=== PATIENT | male | born 1955 | race Caucasian/White ===

== ENCOUNTER → 2020-01-22 | Outpatient (CLI) | payer OTHER, SELFPAY ==
--- NOTE | 2020-01-22 14:43 | EKG12_ITS ---
Test Reason : PRE OP Blood Pressure : / mmHG Vent. Rate : 054 BPM Atrial Rate : 054 BPM P-R Int : 166 ms QRS Dur : 094 ms QT Int : 400 ms P-R-T Axes : 047 045 031 degrees QTc Int : 379 ms Sinus bradycardia Incomplete right bundle branch block Borderline ECG Confirmed by RONNA CHEATHAM, JONNY ([id number]), editor publications ROXANA AMAYA ([id number]) on 01/25/2020 1:43:12 PM Referred By: Pop Francis Confirmed By:ALFA FRIEND MD
[2020-01-22 15:34] LABS: Absolute Lymphocyte Count 1.64 X10^3/uL (0.83-4.51); Absolute Neutrophil Count 3.9 X10^3/uL (2.0-7.7); Basophil# 0.08 X10^3/uL; Basophil% 1.2 % (0-1); Eosinophil# 0.18 X10^3/uL; Eosinophils% 2.8 % (0-5); Hematocrit 47.2 % (40-54); Hemoglobin 16.4 g/dL (13.0-16.5); Lymphocyte # 1.64 X10^3/ul (4.0); Lymphocyte % 25.3 % (19-41); Mean Corp Hgb Conc 34.7 g/dL (32-36); Mean Corpuscular Hgb 32.9 pg (27.0-32.0); Mean Corpuscular Volume 94.6 fL (80-94); Mean Platelet Vol. 10.4 fl (6.2-12.0); Monocyte# 0.61 X10^3/uL; Monocyte% 9.4 % (0-10); NRBC Flagged by Analyzer 0 % (0-5); Neutrophil % 60.4 % (47-70); Platelet Count 178 K/mm3 (150-450); RBC Distribution Width CV 12.7 % (11.6-14.6); RBC Distribution Width SD 43.7 fl (35.1-43.9); Red Blood Count 4.99 M/mm3 (4.6-6.2); White Blood Count 6.5 K/mm3 (4.4-11.0)
[2020-01-22 16:07] LABS: Anion Gap 6 (5-15); BUN 17 mg/dL (7-18); BUN/Creat Ratio 20.1 RATIO (10-20); Chloride 102 mmol/L (98-107); Creatinine, Serum 0.85 mg/dL (0.70-1.30); EST Glomerular Filtration Rate 97 mL/min (>60); Est Glom Filt Rate - Afr Amer 117 mL/min (>60); Glucose 92 mg/dL (74-106); Sodium Level 137 mmol/L (136-145)
== END | disposition home or self-care (01) ==
LOC: LAB 14:27
PROVIDERS: PCP Family Medicine; Referring Provider Physician Assistant Surgical; Visit Provider Physician Assistant Surgical
DX: Z01.810 Encounter for preprocedural cardiovascular examination (principal)
CPT/HCPCS: 36415; 80048; 85025; 93005

== ENCOUNTER → 2020-03-11 | Outpatient (CLI) | payer OTHER, SELFPAY ==
[2020-03-11 11:24] LABS: Absolute Lymphocyte Count 1.45 X10^3/uL (0.83-4.51); Absolute Neutrophil Count 3.1 X10^3/uL (2.0-7.7); Basophil# 0.11 X10^3/uL; Basophil% 1.9 % (0-1); Eosinophil# 0.13 X10^3/uL; Eosinophils% 2.3 % (0-5); Hemoglobin 16.9 g/dL (13.0-16.5); Lymphocyte # 1.45 X10^3/ul (4.0); Lymphocyte % 25.6 % (19-41); Mean Corp Hgb Conc 33.8 g/dL (32-36); Mean Corpuscular Hgb 32.4 pg (27.0-32.0); Mean Platelet Vol. 9.8 fl (6.2-12.0); Monocyte# 0.78 X10^3/uL; Monocyte% 13.8 % (0-10); NRBC Flagged by Analyzer 0 % (0-5); Neutrophil # 3.13 X10^3/uL (2.7-7.7); Neutrophil % 55.3 % (47-70); Platelet Count 173 K/mm3 (150-450); RBC Distribution Width CV 12.9 % (11.6-14.6); RBC Distribution Width SD 45.6 fl (35.1-43.9); Red Blood Count 5.21 M/mm3 (4.6-6.2); White Blood Count 5.7 K/mm3 (4.4-11.0)
[2020-03-11 11:51] LABS: Anion Gap 3 (5-15); BUN 18 mg/dL (7-18); BUN/Creat Ratio 19.8 RATIO (10-20); Calcium,Total 9.2 mg/dL (8.5-10.1); Chloride 102 mmol/L (98-107); Creatinine, Serum 0.91 mg/dL (0.70-1.30); EST Glomerular Filtration Rate 89 mL/min (>60); Est Glom Filt Rate - Afr Amer 108 mL/min (>60); Glucose 92 mg/dL (74-106); Potassium 4.5 mmol/L (3.5-5.1); Sodium Level 136 mmol/L (136-145)
== END | disposition home or self-care (01) ==
LOC: LAB 10:53
PROVIDERS: PCP Preventive Medicine Occupational Medicine; Referring Provider Physician Assistant Surgical; Visit Provider Physician Assistant Surgical
DX: Z01.818 Encounter for other preprocedural examination (principal)
CPT/HCPCS: 36415; 80048; 85025

== ENCOUNTER 2024-08-25 08:53 | Day surgery (SDC) | payer MEDICARE, SELFPAY ==
--- NOTE | 2024-08-25 09:18 | PCM.PRE.AN2 ---
ASA Classification* ASA Classification ASA Classification: 2 Assessment & Plan Anesthesia* Anesthesia Assessment Anesthesia Assessment: Discussed sedation and/or anesthesia options, risks, benefits, and alternatives with patient/parents/legal guardian/POA. Questions invited. The patient/parents/legal guardian/POA seems to understand and agrees to proceed with anesthesia plan. Reviewed the physical assessment, medical history, allergy history and patient home medications list prior to surgery/procedure/anesthetic and documented any changes. Performed airway and anesthesia risk assessments. Anesthesia Type Anesthesia Type: MAC (see written pre anesthesia record for full assessment) Anesthesia Focused Assessment* Airway Assessment Mouth opens: >3 cm Mallampati Score: II Focused Labs Anesthesia Preop lab: CBC WBC 5.7 K/mm3 (4.4-11.0) 03/11/20 10:54 RBC 5.21 M/mm3 (4.6-6.2) 03/11/20 10:54 Hgb 16.9 g/dL (13.0-16.5) H 03/11/20 10:54 Hct 50.0 % (40-54) 03/11/20 10:54 Plt Count 173 K/mm3 (150-450) 03/11/20 10:54 CHEMISTRY Potassium 4.5 mmol/L (3.5-5.1) 03/11/20 10:54 Sodium 136 mmol/L (136-145) 03/11/20 10:54 BUN 18 mg/dL (7-18) 03/11/20 10:54 Creatinine 0.91 mg/dL (0.70-1.30) 03/11/20 10:54 Glucose 92 mg/dL (74-106) 03/11/20 10:54 COAG Pre-Assessment Diagnosis/Proposed Procedure Planned Operative Procedure(s): COLONOSCOPY Anesthesia History 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 When Was Last Pacemaker Check QUESTION #4 FULL TEXT: You/Your Family Experience fever (hyperthermia) with Anesthesia Last Oral Intake Last Oral intake: Last Oral Intake NPO since Meds taken in AM with sips of water? Meds patient instructed to take am of surgery PONV PONV - wheel and pinion inspector: PONV - wheel and pinion inspector Female No 08/20/24 15:01 HX of Motion Sickness No 08/20/24 15:01 HX of N/V After Surgery No 08/20/24 15:01 Non-Smoker Yes 08/20/24 15:01 Duration of Surgery greater No 08/20/24 15:01 than 60 minutes Number of Risk Factors 1 08/20/24 15:01 PONV Score Low Risk 08/20/24 15:01 Respiratory Assessment Respiratory Assessment - wheel and pinion inspector: Respiratory Tract Infection Hx - wheel and pinion inspector Hx Respiratory Tract Infection No 08/20/24 15:01 STOP Sleep Apnea STOP Sleep Apnea - wheel and pinion inspector: STOP Sleep Apnea - wheel and pinion inspector Hx Hypertension No 08/20/24 15:01 Hx Sleep Apnea No 08/20/24 15:01 CPAP BIPAP Do you snore loudly (louder Yes 08/20/24 15:01 than talking or can be heard Do you often feel tired/ No 08/20/24 15:01 fatigued/ sleepy during daytime? Has anyone observed you stop No 08/20/24 15:01 breathing during sleep? STOP Results Negative 08/20/24 15:01 QUESTION #5 FULL TEXT : Do you snore loudly (louder than talking or can be heard through closed doors)? Tobacco Use History Tobacco Use History - wheel and pinion inspector: Tobacco Use History - wheel and pinion inspector Tobacco Use Smoking Status Current every day smoker 08/20/24 15:01 Hx Tobacco Use Yes 08/20/24 15:01 Years Smoking Packs Smoked per Day Smoking Cessation Date was within the last 15 years Hx Smoking Cessation Date Hx Smoking Cessation Counseling Hematologic Medial History Hematologic Hx - wheel and pinion inspector: Hematologic Medical Hx - pediatric lpn Hx of Blood Transfusion No 08/20/24 15:01 Hx of Transfusion in last 3 No 08/20/24 15:01 Months Date of Last Transfusion (if within last 3 months) Ever experience any problems No 08/20/24 15:01 with transfusion(s)? Specify any problems Hx of Preganancy in last 3 N/A 10/10/24 15:01 Months Nurse Filling Out Transfusion [email or web address] 08/20/24 15:01 & Questions: Date: 08/20/24 08/20/24 15:01 Time: 15:04 08/20/24 15:01 Patient unable to answer at this time (ie. confused, unrespo /Reproduction History /Reproductive History - wheel and pinion inspector: /Reproductive Hx- wheel and pinion inspector Hx Now Gestational Age (in weeks): EDC: Hx Hx Para Hx Section SAB PFSH Medical History Alcohol use Back pain Smoker Hx of hyperlipidemia GERD (gastroesophageal reflux disease) History of colorectal cancer Home Medications ?Medication ?Instructions ?Recorded ?Last Taken ?Type atorvastatin 40 mg tablet 40 mg PO QDAY 08/06/24 Unknown History omeprazole 40 mg capsule,delayed 40 mg PO QDAY PRN GERD 08/06/24 Unknown History release tramadol 50 mg tablet 50 mg PO QHS PRN pain 08/06/24 Unknown History Allergy/AdvReac Type Severity Reaction Status Date / Time No Known Allergies Allergy Verified 08/25/24 09:18 Surgical History H/O shoulder surgery History of tonsillectomy and adenoidectomy History of total right hip replacement History of partial colectomy Hx of colonoscopy Social History household members: spouse current occupational status: employed 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
[2024-08-25 09:19] VITALS: BP 147/83; PULSE 59; RESP 16; TEMP 36.1; O2SAT 100; BMI 25.4
--- NOTE | 2024-08-25 10:00 | COLBX_PTH ---
PATIENT: BRENDAN RAMIREZ LOC: EN U#:[id number] AGE/SX: 69/M ROOM: RE08/25/[address]: Dr. Bryn Gonzalez MD : 1955 BED: DIS: 08/25/2024 SPEC #: [id number] RECD: 08/25/24 17:52 STATUS: SILVERIO RERandy #: [id number] NAVARRO: 08/25/24 10:[address]: Bryn Gonzalez DEPT: SURGICAL PATHOLOGY RECD BY: Tasia Lewis ENTERED: 08/26/24 08:08 SP TYPE: COLON BX OTHR DR: Dr. Konrad Dempsey DO Tissues: Sigmoid colon biopsy Procedures: Surgery Specimen Level IV HEADER OPERATION: Colonoscopy with biopsy PRE-OP DIAGNOSIS: Encounter for screening for malignant neoplasm of colon TISSUE SUBMITTED: Sigmoid polyp biopsy MICROSCOPIC DIAGNOSIS Sigmoid colon polyp, biopsy: Benign mucosal polyp. See comment. 08/27/2024 COMMENT Neither hyperplastic nor adenomatous change is identified. Clinical correlation is suggested. MICROSCOPIC DESCRIPTION Slides are reviewed. GROSS DESCRIPTION Received in fixative is one container labeled with the patient's name and designated Sigmoid polyp biopsy. The specimen consists of one irregular fragment of light hankins soft tissue that measures 0.3 x 0.3 x 0.1 cm. The specimen is totally submitted in one cassette. 08/26/2024 TC:5 CPT:31853
--- NOTE | 2024-08-25 10:25 | PCM.HP.STD ---
[facility] - General General Date of Admission: 08/25/24 Date of Service: 08/25/24 Chief Complaint: Colon cancer screening HPI Narrative BRENDAN RAMIREZ, is a 69 M who presents for screening colonoscopy. Patient states his last colonoscopy was probably 10 to 12 years ago this was reportedly normal. About 17 years ago patient was diagnosed with colon cancer and underwent surgical resection. Based on his description I suspect this was likely sigmoid or rectosigmoid region. Patient denies any new or recent GI symptoms. No blood in his stools. No black or tarry stools. No family history of colon polyps or colon cancers. [facility] Medical History Alcohol use Back pain Smoker Hx of hyperlipidemia GERD (gastroesophageal reflux disease) History of colorectal cancer Home Medications ?Medication ?Instructions ?Recorded ?Last Taken ?Type atorvastatin 40 mg tablet 40 mg PO QDAY 08/06/24 Unknown History omeprazole 40 mg capsule,delayed 40 mg PO QDAY PRN GERD 08/06/24 Unknown History release tramadol 50 mg tablet 50 mg PO QHS PRN pain 08/06/24 Unknown History Allergy/AdvReac Type Severity Reaction Status Date / Time No Known Allergies Allergy Verified 08/25/24 09:18 Surgical History H/O shoulder surgery History of tonsillectomy and adenoidectomy History of total right hip replacement History of partial colectomy Hx of colonoscopy Social History household members: spouse current occupational status: employed 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, [employer] Smoking Status: Current every day smoker tobacco type: cigars per week: 14 alcohol intake: current alcohol intake frequency: 0-2 drinks per day substance use type: does not use ROS Constitutional Constitutional: Reports systems reviewed and no addt'l complaints, except as documented Eyes Eyes: Reports systems reviewed and no addt'l complaints, except as documented ENT HEENT: Reports systems reviewed and no addt'l complaints, except as documented Cardiovascular Cardiovascular: Reports systems reviewed and no addt'l complaints, except as documented Respiratory/Chest Respiratory/Chest: Reports systems reviewed and no addt'l complaints, except as documented Gastrointestinal Gastrointestinal: Reports systems reviewed and no addt'l complaints, except as documented Vital Signs Vital Signs Vital Signs: 08/25/24 09:19 08/25/24 09:19 Temperature 97.0 F L Temperature Source Temporal Pulse Rate 59 L Respiratory Rate 16 Respiratory Pattern Normal Blood Pressure 147/83 H Blood Pressure Mean 104 Blood Pressure Source Monitor Blood Pressure Position Semi-Fowlers Blood Pressure Location Left Arm Pulse Ox 100 Oxygen Delivery Method Room Air Weight Weight: 192 lb 10.944 oz Body Mass Index (BMI) 25.4 Physical Exam Narrative The patient is alert and oriented x 3. He is in no acute distress. His head is normocephalic and atraumatic. Pupils are equal round and reactive to light. Abdomen is soft nontender nondistended. Assessment & Plan Assessment/Plan (1) Encounter for screening for malignant neoplasm of colon: PLAN: Plan The patient is a 69-year-old male with history of colon cancer treated with surgical resection about 17 years ago. He is here today for colonoscopy. He denies any new GI issues or problems. We discussed the details of the planned procedure and he wishes to proceed. This will begin momentarily. Charges/Coding Visit Charges Inpatient E&M: 20079 Init Hosp L1
[2024-08-25 11:10] VITALS: BP 103/64; BP 147/83; PULSE 61; RESP 16; TEMP 36.1; O2SAT 98
--- NOTE | 2024-08-25 11:12 | OP.COLON_ITS ---
Patient Name: Alexsander Torres Procedure Date: 08/25/2024 10:21 AM Date of : 1955 Age: 69 Procedure: Colonoscopy Indications: High risk colon cancer surveillance: Personal history of colon cancer Providers: Bryn Gonzalez MD Referring MD: Konrad Dempsey Medicines: Monitored Anesthesia Care Patient Profile: Refer to note in patient chart for documentation of history and physical. Last Colonoscopy: more than 10 years ago. Complications: No immediate complications. Estimated blood loss: Minimal. Procedure: Pre-Anesthesia Assessment: - Prior to the procedure, a History and Physical was performed, and patient medications and allergies were reviewed. The patient's tolerance of previous anesthesia was also reviewed. The risks and benefits of the procedure and the sedation options and risks were discussed with the patient. All questions were answered, and informed consent was obtained. Prior Anticoagulants: The patient has taken no anticoagulant or antiplatelet agents. ASA Grade Assessment: II - A patient with mild systemic disease. After reviewing the risks and benefits, the patient was deemed in satisfactory condition to undergo the procedure. After I obtained informed consent, the scope was passed under direct vision. Throughout the procedure, the patient's blood pressure, pulse, and oxygen saturations were monitored continuously. The adult colonoscope was introduced through the anus and advanced to the cecum, identified by appendiceal orifice and ileocecal valve. The ileocecal valve, appendiceal orifice, and rectum were photographed. The entire colon was well visualized. The colonoscopy was performed without difficulty. The patient tolerated the procedure well. The quality of the bowel preparation was adequate. Moderate Sedation: See the other procedure note for documentation of moderate sedation with intraservice time. Scope In: 10:41:28 AM Scope Withdrawal Time 0 hours 14 minutes 12 seconds Scope Out: 11:04:29 AM Total Procedure Duration Time 0 hours 23 minutes 1 second Findings: The perianal and digital rectal examinations were normal. A 3 mm polyp was found in the sigmoid colon. The polyp was semi-sessile. The polyp was removed with a cold biopsy forceps. Resection and retrieval were complete. Verification of patient identification for the specimen was done by the nurse using the patient's name, date and medical record number. Estimated blood loss was minimal. The exam was otherwise without abnormality on direct and retroflexion views. Impression: - One 3 mm polyp in the sigmoid colon, removed with a cold biopsy forceps. Resected and retrieved. - The examination was otherwise normal on direct and retroflexion views. Recommendation: - Discharge patient to home (ambulatory). - High fiber diet indefinitely. - Await pathology results. - Repeat colonoscopy in 5 years for surveillance. - Return to my office PRN. - Continue present medications. Procedure Code(s): --- Professional --- 44036, Colonoscopy, flexible; with biopsy, single or multiple Diagnosis Code(s): --- Professional --- D12.5, Benign neoplasm of sigmoid colon Z85.038, Personal history of other malignant neoplasm of large intestine CPT copyright 2021 [employer]. All rights reserved. The codes documented in this report are preliminary and upon hadoop architect review may be revised to meet current compliance requirements. Bryn Gonzalez MD 08/25/2024 11:11:50 AM This report has been signed electronically. Number of Addenda: 0 Note Initiated On: 08/25/2024 10:21 AM
--- NOTE | 2024-08-25 11:12 | OP.CCLET_ITS ---
08/25/2024 Konrad Dempsey [address] [place] [address] Re : Colonoscopy procedure for Alexsander Forrer Dear Dr. Dempsey This procedure was performed on Sunday, August 25, 2024. My impressions and recommendations are as follows: Impressions : - One 3 mm polyp in the sigmoid colon, removed with a cold biopsy forceps. Resected and retrieved. - The examination was otherwise normal on direct and retroflexion views. Recommendations : - Discharge patient to home (ambulatory). - High fiber diet indefinitely. - Await pathology results. - Repeat colonoscopy in 5 years for surveillance. - Return to my office PRN. - Continue present medications. My findings are described in the full procedure note, which is enclosed. If I can be of further assistance, please feel free to contact me at . Sincerely, Bryn Gonzalez MD 08/25/2024 11:11:50 AM This report has been signed electronically.
--- NOTE | 2024-08-25 11:13 | PCM.POST.ANE ---
Anesthesia: Postop Eval I Current Vital Signs Temperature: 97.8 F Pulse Rate: 64 Blood Pressure: 103/64 Respiratory Rate: 16 Pulse Ox: 98 Oxygen Delivery Method: Room Air Assessment Airway patent: Yes Spontaneous unlabored respirations: Yes Mental status: Awake and Calm nausea: No Vomiting: No Anesthesia Complication: No Fluid Hydration Crystalloid volume administer (ml): 60 Total IV fluid infused: 60 Progress Note Anesthesia document: Postop Eval 1 completed: Yes
[2024-08-25 11:14] VITALS: BP 103/64; PULSE 64; RESP 16; TEMP 36.6; O2SAT 98
[2024-08-25 11:15] VITALS: BP 106/63; BP 147/83; PULSE 58; RESP 16; O2SAT 98
[2024-08-25 11:20] VITALS: BP 114/71; BP 147/83; PULSE 57; RESP 16; TEMP 36.3; O2SAT 98
[2024-08-25 11:34] VITALS: BP 147/83
--- NOTE | 2024-08-25 16:54 | PCM.POSTANE2 ---
Anesthesia Postop Eval I Sum Postop Eval Completion status Anesthesia document: Postop Eval 1 completed: Yes Anesthesia Postop Eval I Summary Anesthesia Postop Eval I Summary: Anesthesia Postop Eval I: Assessment Summary Airway patent Yes 08/25/24 11:14 [email or web address] Spontaneous unlabored Yes 08/25/24 11:14 [email or web address] respirations Mental status Awake,Calm 08/25/24 11:14 [email or web address] nausea No 08/25/24 11:14 [email or web address] Vomiting No 08/25/24 11:14 [email or web address] Anesthesia Postop Eval I: Fluid Summary Crystalloid volume administer 60 08/25/24 11:14 [email or web address] (ml) Colloids volume administered ( ml) Blood Product volume administered (ml) Total IV fluid infused 60 08/25/24 11:14 [email or web address] Anesthesia Postop Eval I: Summary Notes Anesthesia Complication No 08/25/24 11:14 [email or web address] Anesthesia Complication Comment: Post-operative progress note Anesthesia: Postop Eval II Evaluation Mental status: Awake and Calm Pain Level: 0 nausea: No Vomiting: No Complications Anesthesia Complication: No
== END 2024-08-25 11:54 | disposition home or self-care (01) ==
LOC: EN 08:54 → AC 08:56
PROVIDERS: PCP Preventive Medicine Occupational Medicine; Referring Provider Preventive Medicine Occupational Medicine; Visit Provider Surgery
PROC: 0DJD8ZZ Inspection of Lower Intestinal Tract, Via Natural or Artificial Opening Endoscopic (ICD-10-PCS; CPT 45378; principal; 2024-08-25 09:55)
DX: Z12.11 Encounter for screening for malignant neoplasm of colon (principal); E78.5 Hyperlipidemia, unspecified; Z85.038 Personal history of other malignant neoplasm of large intestine; K21.9 Gastro-esophageal reflux disease without esophagitis; Z79.899 Other long term (current) drug therapy; Z96.641 Presence of right artificial hip joint; Z90.49 Acquired absence of other specified parts of digestive tract; F17.290 Nicotine dependence, other tobacco product, uncomplicated; K63.5 Polyp of colon
CPT/HCPCS: 45380; 88305; A4216; J2405